=== PATIENT | female | born 1950 | race Caucasian/White ===

== ENCOUNTER 2019-02-11 00:55 | Outpatient (CLI) | payer MEDICARE, OTHER, SELFPAY ==
--- NOTE | 2019-02-11 07:37 | DI.MAMMO_ITS ---
SYMPTOM/DIAGNOSIS: SCREENING, Z12.31 MAMMOGRAMS: Mammograms were interpreted according to the usual protocol including computer analysis with CAD system, tomosynthesis and C view imaging. The breast tissue is of moderate radiodensity. There is no mass. There are no suspicious calcifications and there has been no significant interval change when compared with prior images. SUMMARY: No evidence of malignancy, category 1. Yearly screening mammography is recommended. Breast density, Category B. SA ASSESSMENT OF FINDINGS: Negative. Category 1. Patient will receive a letter notifying them of these results. BI-RADS category B. There are scattered areas of fibroglandular density.
[2019-02-11 08:56] LABS: Hemoglobin A1C 6.2 % (4.5-6.2)
[2019-02-11 09:03] LABS: Anion Gap 11.7 mmol/L (3-11); BUN 11 mg/dL (7-18); CO2 25.3 mmol/L (21.0-32.0); Calcium 9.3 mg/dL (8.5-10.1); Chloride 103 mmol/L (98-107); Glucose 178 mg/dL (70-100); Potassium 4.2 mmol/L (3.5-5.1); Sodium 140 mmol/L (136-145); TSH (W/Ref FT4) 3.65 uIU/mL (0.358-3.74)
== END 2019-02-11 01:15 ==
PROVIDERS: PCP Family Medicine; Visit Provider Family Medicine
DX: Z12.31 Encounter for screening mammogram for malignant neoplasm of breast (principal); E03.9 Hypothyroidism, unspecified; E78.5 Hyperlipidemia, unspecified; R73.01 Impaired fasting glucose
CPT/HCPCS: 36415; 77063; 77067; 80048; 83036; 84443

== ENCOUNTER 2019-03-30 12:26 | Outpatient (REF) | payer MEDICARE, OTHER, SELFPAY ==
--- NOTE | 2019-03-30 12:00 | SKI_PTH ---
PATIENT: Paula Sanz LOC: [facility] U#:[id number] AGE/SX: 68/F ROOM: RE03/30/[address]: Trae Evans DO : 1950 BED: DIS: 03/30/2019 SPEC #: [id number] RECD: 03/30/19 18:07 STATUS: SHARON REQ #: [id number] CRISTINO: 03/30/19 12:[address]: Trae Evans DEPT: Surgical Specimen RECD BY: Yudy Aranda ENTERED: 03/30/19 18:08 SP TYPE: MULUGETA SMITH DR: Linh Huber Tissues: 1 - SKIN BIOPSY(SHAVE/PUNCH) Procedures: SKIN LEVEL 4 Comments: [id number]
== END 2019-03-30 12:46 ==
LOC: LBN 12:26
PROVIDERS: PCP Family Medicine; Visit Provider Otolaryngology Otolaryngology/Facial Plastic Surgery
DX: L73.8 Other specified follicular disorders (principal); L98.8 Other specified disorders of the skin and subcutaneous tissue
CPT/HCPCS: 88305

== ENCOUNTER → 2019-07-23 08:51 | Outpatient (BNVA) | payer MEDICARE, OTHER, SELFPAY | PROVIDERS: PCP Family Medicine; Referring Provider Family Medicine; Visit Provider Physical Therapy Assistant | DX: Z12.11 Encounter for screening for malignant neoplasm of colon (principal); Z86.010 Personal history of colon polyps; Z80.0 Family history of malignant neoplasm of digestive organs; I10 Essential (primary) hypertension ==

== ENCOUNTER 2019-08-07 08:22 | Day surgery (SDC) | payer MEDICARE, OTHER, SELFPAY ==
[2019-08-07 08:41] VITALS: BP 163/94; PULSE 100; RESP 19; TEMP 36.3; O2SAT 95
--- NOTE | 2019-08-07 09:49 | W.PM.DSUDISC ---
Discharge Plan Disposition Patient Disposition: HOME Condition: Good Discharge Details Reason For Visit: Colonoscopy Attending Provider: Tiana Pond Primary Care Provider: Linh Huber Home Meds and New Rx's Prescriptions: Continued nabumetone 500 mg tablet 500 mg PO BID RF: 0 levothyroxine 50 MCG tablet 50 mcg PO DAILY RF: 0 rosuvastatin [Crestor] 10 MG tablet 10 mg PO DAILY RF: 0 ibuprofen [Advil Liqui-Gel] 200 MG capsule 400 mg PO PRN PRNRF: 0 naproxen sodium [Aleve] 220 MG capsule 220 mg PO PRN PRNRF: 0 Cardiamin 200 mcg-500 unit-200 mg Capsule 1 cap PO RF: 0 Discontinued polyethylene glycol 3350 17 gram/dose powder 238 g PO ONCE Qty: 238 RF: 0 bisacodyl [Dulcolax (bisacodyl)] 5 mg tablet,delayed release (DR/EC) 5 mg PO ONCE Qty: 4 RF: 0 Discharge Instructions Additional Instructions: Findings: Your colonoscopy showed diverticulosis. Follow up: Plan for follow up colonoscopy in 5 years due to family history and history of polyps. Please call if you develop: fevers >101.5 Nausea or Vomiting Abdominal pain that is not transient DAY SURGERY UNIT POST COLONOSCOPY INSTRUCTIONS 1. Because there will be medication in your system for the next 24 hours, you may feel a little sleepy. Your coordination will be affected. Therefore: a. Do not drive or operate dangerous equipment for 24 hours. b. Do not drink alcohol beverages for 24 hours (not even beer). c. Plan to go home and rest for the day. 2. Generally there are no restrictions on your activity after a day or so has gone by, but you may feel a bit fatigued for a few days. 3 After you arrive home you may have a light meal and return to a normal diet as you can tolerate it without feeling sick to your stomach. 4. After surgery, you may feel pain or discomfort. This should be only transient, but if it persists please contact your doctor. 5. If there are any questions regarding the findings of your procedure, please feel free to contact your doctor. 6. If you are unable to contact your doctor with a problem, contact the hospital at [phone]. 7. Continue all your regular medications unless directed otherwise. I understand the above instructions and have no questions. Signature of Patient or Responsible Adult Escort Date/Time Name of Responsible Adult Escort Signature of Nurse Date/Time Activity:: Activity as Tolerated Diet:: As Tolerated Discharge Orders Discharge Orders: Discharge Order (Routine); Ordered 08/07/19 Ordered By: Tiana Pond DS: Diagnosis Discharge Diagnosis (1) Diverticulosis: Status: Acute
[2019-08-07] MEDS: Lactated Ringers 1,000 ML 80 ML IV (10:19)
[2019-08-07 11:35] VITALS: BP 116/61; PULSE 80; RESP 16; TEMP 35.9; O2SAT 97
--- NOTE | 2019-08-07 11:59 | COLE_ITS ---
DATE OF PROCEDURE: August 07, 2019 PREOPERATIVE DIAGNOSIS: 1. History of colon polyps. 2. Family history of colon cancer. POSTOPERATIVE DIAGNOSIS: Diverticulosis. PROCEDURE: Colonoscopy. SURGEON: Tiana Pond M.D. ANESTHESIA: General. INDICATIONS: This is a 68-year-old woman whose colonoscopy in 2013 showed a tubular adenoma. She mckeon s a family history of colon cancer in her father, brother and sister. She does note that her stools are somewhat more narrow. PROCEDURE: She was placed in the left Vasquez position. Propofol was titrated to sedation. Digital re ctal examination revealed no abnormalities. The scope was advanced to the cecum with a small amount of abdominal pressure required. The ileocecal valve and appendiceal orifice were clearly identified. Her prep was excellent. The scope was slowly withdrawn with no abnormalities seen within the ascen ding, transverse or descending colon. The sigmoid region revealed moderate diverticular change. The rectum was normal, including on retroflex view. She tolerated the procedure well and was stable to recovery. Due to her personal history of polyps and family history of colon cancer, she will need a follow-up s creening again in five years. cc: Linh Huber M.D.
== END 2019-08-07 11:51 | disposition home or self-care (01) ==
PROVIDERS: PCP Family Medicine; Visit Provider Surgery
PROC: 0DJD8ZZ Inspection of Lower Intestinal Tract, Via Natural or Artificial Opening Endoscopic (ICD-10-PCS; CPT 45378; principal; 2019-08-07 09:45)
DX: Z12.11 Encounter for screening for malignant neoplasm of colon (principal); Z86.010 Personal history of colon polyps; Z80.0 Family history of malignant neoplasm of digestive organs; K57.30 Diverticulosis of large intestine without perforation or abscess without bleeding; I10 Essential (primary) hypertension
CPT/HCPCS: G0105; J2250; J3010

== ENCOUNTER 2020-06-17 11:19 | Outpatient (REF) | payer MEDICARE, OTHER, SELFPAY ==
[2020-06-17 19:31] LABS: HCT 48.1 % (36.0-46.0); HGB 15.5 g/dL (11.2-15.7); MCH 29.5 pg (27.0-33.0); MCHC 32.2 % (32.0-36.0); MCV 91.6 fL (80-95); MPV 10.9 fL (8.0-11.0); Platelet Count 231 10^3/uL (130-400); RBC 5.25 10^6/uL (3.93-5.22); RDW-SD 47.6 fL; WBC 7.91 10^3/uL (4.4-10.8)
[2020-06-17 20:18] LABS: ALT 29 U/L (14-59); AST 17 U/L (15-37); Albumin 4.2 g/dL (3.4-5.0); Alkaline Phosphatase 80 U/L (46-116); Anion Gap 10.5 mmol/L (3-11); BUN 14 mg/dL (7-18); Bilirubin, Total 0.4 mg/dL (0.2-1.0); CO2 25.5 mmol/L (21.0-32.0); CREATININE 0.74 mg/dL (0.55-1.02); Calcium 9.4 mg/dL (8.5-10.1); Chloride 104 mmol/L (98-107); Glucose 99 mg/dL (74-106); Magnesium 2.3 mg/dL (1.8-2.4); NT-proBNP 29 pg/mL (<300); Potassium 4.2 mmol/L (3.5-5.1); Sodium 140 mmol/L (136-145); TSH (W/Ref FT4) 2.43 uIU/mL (0.36-3.74); Total Protein 7.6 g/dL (6.4-8.2)
== END 2020-06-17 11:39 ==
LOC: NCHCN 11:19
PROVIDERS: PCP Family Medicine; Visit Provider Family Medicine
DX: E78.5 Hyperlipidemia, unspecified (principal); R73.03 Prediabetes; R60.0 Localized edema; E66.9 Obesity, unspecified
CPT/HCPCS: 80053; 85027; 83036; 83735; 83880; 84443

== ENCOUNTER 2021-07-06 13:02 | Outpatient (REF) | payer MEDICARE, OTHER, SELFPAY ==
[2021-07-06 09:45] LABS: Hemoglobin A1C 6.1 % (<5.7)
[2021-07-06 09:53] LABS: Anion Gap 11.1 mmol/L (3-11); BUN 12 mg/dL (7-18); CO2 26.9 mmol/L (21.0-32.0); CREATININE 0.8 mg/dL (0.55-1.02); Calcium 9.3 mg/dL (8.5-10.1); Calculated LDL 66 mg/dL (<100); Chloride 104 mmol/L (98-107); Cholesterol 175 mg/dL (<200); Glucose 110 mg/dL (74-106); HDL Cholesterol 57 mg/dL (40-60); Potassium 4.3 mmol/L (3.5-5.1); Sodium 142 mmol/L (136-145); TSH (W/Ref FT4) 2.61 uIU/mL (0.36-3.74); Triglyceride 260 mg/dL (<150)
== END 2021-07-06 13:03 | disposition home or self-care (01) ==
LOC: LBO 13:02
PROVIDERS: PCP Family Medicine; Visit Provider Family Medicine
DX: E78.5 Hyperlipidemia, unspecified (principal); R73.03 Prediabetes; E03.9 Hypothyroidism, unspecified
CPT/HCPCS: 36415; 80048; 80061; 83036; 84443

== ENCOUNTER 2021-07-06 15:08 | Outpatient (REF) | payer MEDICARE, OTHER, SELFPAY ==
[2021-07-06 14:05] LABS: Bilirubin Negative (Negative); Blood Negative (Negative); Clarity Clear (Clear); Glucose Negative (Negative); Ketones Negative (Negative); Leukocyte Esterase Negative (Negative); Nitrite Negative (Negative); Specific Gravity 1.015 (1.005-1.025); Urobilinogen 0.2 EU/dL (Up TO 0.2)
== END 2021-07-06 15:09 | disposition home or self-care (01) ==
LOC: NCHCN 15:08
PROVIDERS: PCP Family Medicine; Visit Provider Family Medicine
DX: R30.0 Dysuria (principal)
CPT/HCPCS: 81003

== ENCOUNTER 2021-07-14 00:47 | Outpatient (CLI) | payer MEDICARE, OTHER, SELFPAY ==
--- NOTE | 2021-07-14 | DI.DEXA_ITS ---
Exam(s) XR DEXA BONE DENSITY W/WO OSMIN EXAM: XR DEXA BONE DENSITY W/WO OSMIN CLINICAL HISTORY: SCREENING FOR OSTEOPOROSIS IN POSTMENOPAUSAL WOMAN,Z78.0 TECHNIQUE: COMPARISON: No exams were available for comparison FINDINGS: DEXA scan was performed according to the usual protocol. Findings for left hip scanning are T-score 0.2 with left femoral neck T-score -0.9. Prior study January 2015 showed left hip T-score 0.6. Lumbar spine scanning shows T-score -0.4, prior examination of 2014 showed lumbar T-score -0.7. Findings for right forearm scanning are T-score -1.4. Prior examination showed forearm T-score -0.4. IMPRESSION: Findings consistent with osteopenia according to the WHO criteria. The lateral vertebral scanogram shows no evidence of a vertebral compression fracture. RADIATION DOSE DELIVERED: Total DLP
== END 2021-07-14 01:07 ==
PROVIDERS: PCP Family Medicine; Visit Provider Family Medicine
DX: Z78.0 Asymptomatic menopausal state (principal); Z13.820 Encounter for screening for osteoporosis; M85.88 Other specified disorders of bone density and structure, other site
CPT/HCPCS: 77080

== ENCOUNTER 2021-08-04 02:11 | Outpatient (CLI) | payer MEDICARE, OTHER, SELFPAY ==
--- NOTE | 2021-08-04 08:45 | DI.MAMMO_ITS ---
Exam(s) MAMMO SCREENING EXAM: MAMMO SCREENING CLINICAL HISTORY: SCREENING MAMMO FOR BREAST CANCER Z12.31 TECHNIQUE: Mammograms were interpreted according to the usual protocol including computer analysis w [employer] CAD system, tomosynthesis and C-view imaging. COMPARISON: 2011 through 2018 FINDINGS: The breasts are composed of scattered fibroglandular densities, Breast Density category B. In the left breast, in the medial, central tissue, there is has been interval increase in prominence of an area of nodularity. It measures 9 millimeters in greatest dimension. Mild post biopsy scarrin g is noted in the upper inner quadrant. No suspicious masses or suspicious microcalcifications are seen in the right breast. No skin thickening or abnormal axillary lymph nodes are seen. IMPRESSION: BI-RADS Cat 0 - Assessment Incomplete: Need additional imaging evaluation spot compression views and ultrasound are recommended for further evaluation. Yearly screening mammography is recommended. Breast Density - Category B, scattered fibroglandular densities. A negative radiographic report should not delay biopsy if a dominant or clinically suspicious mass is present. Up to ten percent of cancers are not identified on mammography. A negative report may reinforce clinical impression. Adenosis and dense breasts may obscure an underlying neoplasm. False positive reports average 6 to 10%. Patient will receive a letter notifying them of these results.
== END 2021-08-04 02:31 ==
PROVIDERS: PCP Family Medicine; Visit Provider Family Medicine
DX: Z12.31 Encounter for screening mammogram for malignant neoplasm of breast (principal); R92.8 Other abnormal and inconclusive findings on diagnostic imaging of breast
CPT/HCPCS: 77063; 77067

== ENCOUNTER 2021-08-18 01:35 | Outpatient (CLI) | payer MEDICARE, OTHER, SELFPAY ==
--- NOTE | 2021-08-18 13:40 | DI.MAMMO_ITS ---
Exam(s) MG MAMMO SCREEN CALL BACK UNI US BREAST LT COMPLETE EXAM: MG MAMMO SCREEN CALL BACK UNI and U/S breast LT limited CLINICAL HISTORY: INCREASED PROMINENCE OF NODULARITY LEFT BREAST. TECHNIQUE: Craniocaudal and mediolateral oblique Full Field Digital Mammography views of the left br east with Computer Aided Diagnosis followed by Tomosynthesis and left breast ultrasound. COMPARISON: Priors available for comparison. FINDINGS: Mammography/Tomosynthesis: Masses/Architectural Distortion: The irregular 1 cm somewhat spiculated nodule in the upper inner jennifer drant of the left breast persists on the additional views. There is a single associated punctate dimitrios cification. Microcalcifictions: No suspicious pleomorphic-type are seen. Skin Thickening/Nipple Retraction: None. Left breast US: Echotexture: Normal appearance of the glandular tissue. Shadowing: No suspicious foci. Cyst: A 5 x 3 x 4 mm cyst is seen at the 12 o'clock position of the left breast 3 cm from the nipple. There is a 0.7 x 0.5 x 0.6 cm hypoechoic round avascular solid nodule at the 11 o'clock position of the left breast 4 cm from the nipple. This may represent the mammographic abnormality. Solid lesions: None seen. Ductal dilation: None. IMPRESSION: 1. Enlarging somewhat spiculated irregular nodule in the upper inner quadrant of the left breast. 2. Due to its size and appearance mammographically, biopsy is recommended. 3. The findings were discussed with the patient on the date of the examination. BI-RADS Category 4 - Suspicious Abnormality: Biopsy should be considered Breast Density - Category B - Scattered areas of fibroglandular density Breast density Category C or D implies that the patient has dense breast tissue. Dense breast tissue can make it harder to find cancer on a mammogram. Dense breast tissue is also associated with an incr eased risk of breast cancer. This information about the result of the mammogram report was provided to the patient to raise their awareness. Use this report when you speak with the patient about their risks for breast cancer, which includes their family history. At that time, you may recommend additional screening tests (Ultrasoun d or MRI) as these tests may add significant information. A negative radiographic report should not delay biopsy if a dominant or clinically suspicious mass is present. Up to ten percent of cancers are not identified on mammography. A negative report may reinforce clinical impression. Adenosis and dense breasts may obscure an underlying neoplasm. False positive reports average 6 to 10%. Patient will receive a letter notifying them of these results.
== END 2021-08-18 01:55 ==
PROVIDERS: PCP Family Medicine; Visit Provider Family Medicine
DX: R92.8 Other abnormal and inconclusive findings on diagnostic imaging of breast (principal); N63.22 Unspecified lump in the left breast, upper inner quadrant
CPT/HCPCS: 76642; 77063; 77067

== ENCOUNTER 2022-07-02 07:58 | Outpatient (REF) | payer MEDICARE, OTHER, SELFPAY ==
[2022-07-02 15:54] LABS: Hemoglobin A1C 6.3 % (<5.7)
[2022-07-02 16:40] LABS: ALT 38 U/L (14-59); AST 18 U/L (15-37); Albumin 4.4 g/dL (3.4-5.0); Alkaline Phosphatase 97 U/L (46-116); Anion Gap 13.3 mmol/L (3-11); BUN 14 mg/dL (7-18); Bilirubin, Total 0.4 mg/dL (0.2-1.0); CO2 25.7 mmol/L (21.0-32.0); CREATININE 0.6 mg/dL (0.55-1.02); Calcium 9.7 mg/dL (8.5-10.1); Calculated LDL 96 mg/dL (<100); Chloride 104 mmol/L (98-107); Cholesterol 192 mg/dL (<200); Estimated GFR 95.31 (mL/min/1.73m2); Glucose 109 mg/dL (74-106); HDL Cholesterol 50 mg/dL (40-60); Sodium 143 mmol/L (136-145); TSH (W/Ref FT4) 3.19 uIU/mL (0.36-3.74); Total Protein 8.2 g/dL (6.4-8.2); Triglyceride 234 mg/dL (<150)
== END 2022-07-02 07:59 | disposition home or self-care (01) ==
LOC: NCHCN 07:58
PROVIDERS: PCP Family Medicine; Visit Provider Family Medicine
DX: E78.5 Hyperlipidemia, unspecified (principal); R73.03 Prediabetes; R03.0 Elevated blood-pressure reading, without diagnosis of hypertension; E03.9 Hypothyroidism, unspecified
CPT/HCPCS: 80053; 80061; 83036; 84443

== ENCOUNTER 2022-10-15 14:55 | Outpatient (REF) | payer MEDICARE, SELFPAY ==
[2022-10-15 16:03] LABS: TSH (W/Ref FT4) 1.17 uIU/mL (0.36-3.74)
== END 2022-10-15 14:56 | disposition home or self-care (01) ==
LOC: NCHCN 14:55
PROVIDERS: PCP Family Medicine; Visit Provider Family Medicine
DX: E03.9 Hypothyroidism, unspecified (principal)
CPT/HCPCS: 84443

== ENCOUNTER → 2023-06-19 03:01 | Outpatient (CLI) | payer MEDICARE, SELFPAY ==
--- NOTE | 2023-06-19 | DI.CT_ITS ---
Exam(s) CT ABDOMEN PELVIS W EXAM: CT ABDOMEN PELVIS W CLINICAL HISTORY: PERIUMBILICAL ABD PAIN R10.33. TECHNIQUE: Imaging Protocol: Axial computed tomography images with coronal and sagittal reformatted images were created and reviewed CONTRAST MATERIAL: Intravenous: Omnipaque-350 100cc Oral: None COMPARISON: No exams were available for comparison FINDINGS: VISUALIZED LUNG BASES: No nodules nor pleural effusions evident. ABDOMEN: There is no ascites. LIVER: Liver is slightly prominent and hypodense implying steatosis. There are no discrete focal hep atic lesions identified. No dilated intrahepatic ducts. GALLBLADDER/BILIARY: Does not appear edematous nor distended. CBD not dilated. CBD is not dilated. PANCREAS: There is a cyst in the anterior aspect of the uncinate process of the pancreas which measur es 8 x 7 mm. No associated calcification. Duct not dilated. There is another slightly smaller cyst in the pancreatic tail which measures 4 mm x 4 mm. The pancreatic duct diameter is slightly promine nt, measuring 3-4 mm. There is no hypodense mass in the pancreas. The CBD diameter as it passes thr ough the pancreas is 4-5 mm, within normal limits and there is no mass at this level nor intraluminal calculus. SPLEEN: Spleen is not enlarged. No obvious intrasplenic lesions. Splenic and portal veins are paten t. ADRENALS: There is slight fusiform thickening of the medial limb of the left adrenal gland. Right ad renal gland unremarkable. KIDNEYS:Small benign cysts in the left kidney measuring 0 point 7 cm and 1.5 cm, not requiring furthe r workup. No solid lesions nor calculi in the left kidney. There are no significant focal findings in the opposite-right kidney. No hydronephrosis on either side. Ureters not dilated. No obvious ab normality in the lumen of the urinary bladder.. ABDOMINAL AORTA: Abdominal aorta is not enlarged. LYMPH NODES:There is no retroperitoneal nor paraaortic adenopathy. ABDOMINAL WALL: There is a midline anterior abdominal wall supraumbilical fat containing hernia sac. This hernia sac measures 4.5 cm wide by 6 cm cephalocaudal. Neck size is 1.8 cm. Contains fat but no fluid nor bowel loops therein. GI: There is a prominent hiatal hernia which measures 7 cm wide by 5 cm AP by 6 cm craniocaudal. Ora l contrast has reached the colon. No evidence of bowel obstruction. There is extensive sigmoid dive rticulosis.. Also multiple diverticuli in the left side of the colon. There is some streaking aroun d 1 of these diverticuli at the left iliac crest level consistent with acute diverticulitis. There a re few uncomplicated diverticuli in the transverse colon and right side of the colon. PELVIS: GI: No evidence of appendicitis. LYMPH NODES: There is no intrapelvic nor inguinal adenopathy. REPRODUCTIVE: The uterus is grossly abnormal being enlarged and lobulated with multiple fibroids. In addition, there is a 4 x 3.5 cm mass projected in the endometrium which is either an endometrial mas s or additional submucosal fibroid. Requires ultrasound. Small cyst in the left ovary measuring 2.3 by 1.1 cm is noted. URINARY BLADDER: No calculi nor obvious masses evident OSSEOUS: No fractures and no significant osseous lesions. IMPRESSION: 1. There is extensive diverticulosis of the left side of the colon and sigmoid. There is also eviden ce of acute diverticulitis at the level of lower left colon just above the iliac crest level. No tosin e air nor abscess at this time. 2. Cholelithiasis. There are calculi ranging up to 2.5 cm size. No obvious gallbladder wall edema n or gallbladder distension and the CBD is not dilated. 3. There are 2 cystic structures in the pancreas. One is in the uncinate process and measures 0.8 cm size. The other is in the pancreatic tail and measures 0.4 cm size. Recommend follow-up pancreatic protocol MRI. 4. The uterus is abnormally enlarged and lobulated with multiple uterine fibroids. There is also a 4 x 3.5 cm mass projected over the endometrium which may be intrinsic endometrial pathology or submuco eliceo fibroid. Follow-up ultrasound is recommended. 5. There is a midline umbilical region hernia sac measuring 6 x 4.5 cm which contains fat but no flu id nor bowel loops. 6. Hepatic steatosis evident. Wet read RADIATION DOSE DELIVERED: 1,409.41mGy.cm Total DLP DATA REPOSITORY: All CT scans at this facility are submitted to the National Radiology Data Registry (NRDR) Dose Index Registry (DIR) with the [employer] (ACR). RADIATION OPTIMIZATION: All CT scans at this facility use at least one of these dose optimization te chniques: automated exposure control; mA and/or kV adjustment per patient size (includes targeted exa ms where dose is matched to clinical indication); or iterative reconstruction.
[2023-06-19 08:41] LABS: CREATININE 0.8 mg/dL (0.55-1.02); Estimated GFR 77.75 (mL/min/1.73m2)
[2023-06-19] MEDS: Normal Saline - Diluent 50 ML VIAL IJ (09:26)
[2023-06-19] MEDS: Omnipaque 350 MG/ML 500 ML BTL-Imaging package IJ (09:27)
[2023-06-19] MEDS: Normal Saline Flush 10 ML SYR IVP (09:28)
[2023-06-19] MEDS: Barium Sulfate 2% W/V-Berry Smoothie 450 ML BTL PO (09:29)
== END ==
PROVIDERS: PCP Family Medicine; Visit Provider Family Medicine
DX: K57.30 Diverticulosis of large intestine without perforation or abscess without bleeding (principal); K80.80 Other cholelithiasis without obstruction; D25.9 Leiomyoma of uterus, unspecified
CPT/HCPCS: 36415; 74177; 82565

== ENCOUNTER → 2023-06-26 01:05 | Outpatient (CLI) | payer MEDICARE, SELFPAY ==
--- NOTE | 2023-06-26 | DI.US_ITS ---
Exam(s) US PELVIS TRANSVAGINAL EXAM: US PELVIS TRANSVAGINAL CLINICAL HISTORY: UTERUS FIBROIDS, D25.9, F/U ABNL FINDINGS ON CT SCAN TECHNIQUE: Transabdominal and transvaginal imaging was performed using standard protocol. COMPARISON: CT CT ABDOMEN PELVIS W from 06/19/2023 FINDINGS: UTERUS: Anteverted. 7.3 x 6.9 x 6.3 cm Endometrium: Obscured by fibroids Myometrium: Multiple fibroids. Fundal fibroid measuring 3.5 cm. Central fibroid measuring 4.2 cm. This could be a submucosal fibroid. Posterior fibroid measuring 3.5 x 4 cm. Anterior lower uterine segment fibroid measuring 3.8 cm Cervix: Unremarkable. OVARIES: Not visualized. CUL-DE-SAC: Free fluid: None. IMPRESSION: 1. Multiple uterine fibroids. There is a central fibroid which may be submucosal. Endometrial strip e obscured by fibroids. 2. Ovaries not visualized. DATA REPOSITORY:
== END ==
PROVIDERS: PCP Family Medicine; Visit Provider Family Medicine
DX: D25.9 Leiomyoma of uterus, unspecified (principal)
CPT/HCPCS: 76830; 76856

== ENCOUNTER 2023-07-15 17:54 | Outpatient (REF) | payer MEDICARE, SELFPAY ==
[2023-07-15 15:45] LABS: Anion Gap 12.8 mmol/L (3-11); BUN 11 mg/dL (7-18); CO2 24.2 mmol/L (21.0-32.0); CREATININE 0.7 mg/dL (0.55-1.02); Calcium 9.4 mg/dL (8.5-10.1); Chloride 105 mmol/L (98-107); Estimated GFR 91.26 (mL/min/1.73m2); Glucose 115 mg/dL (74-106); Potassium 4.2 mmol/L (3.5-5.1); Sodium 142 mmol/L (136-145); TSH (W/Ref FT4) 2.21 uIU/mL (0.36-3.74)
[2023-07-15 15:59] LABS: Vitamin D 25 Total 26.4 ng/mL (30-100)
== END 2023-07-15 17:55 | disposition home or self-care (01) ==
LOC: NCHCN 17:54
PROVIDERS: PCP Family Medicine; Visit Provider Family Medicine
DX: E03.9 Hypothyroidism, unspecified (principal); R03.0 Elevated blood-pressure reading, without diagnosis of hypertension; E66.9 Obesity, unspecified
CPT/HCPCS: 80048; 82306; 84443

== ENCOUNTER → 2023-07-18 01:37 | Outpatient (CLI) | payer MEDICARE, SELFPAY ==
--- NOTE | 2023-07-18 | DI.MRI_ITS ---
Exam(s) MR ABDOMEN WO/W EXAM: MR ABDOMEN WO/W CLINICAL HISTORY: PANCREATIC CYST, K86.2 TECHNIQUE: Multiplanar multisequence MRI of the Abdomen was performed. CONTRAST MATERIAL: IV Contrast: 20 mL of Dotarem contrast administered. COMPARISON: CT CT ABDOMEN PELVIS W from 06/19/2023 FINDINGS: The examination is limited due to patient motion artifact. Lung bases: There is a large hiatal hernia. Liver: Unremarkable. Pancreas: There is a 4 mm cyst in the tail of the pancreas. There is a 7 mm simple cyst in the anter ior aspect of the uncinate process of the pancreas. There is a 2 mm cysts seen in the posterior aspe ct of the uncinate process. No solid masses seen in the pancreas. Pancreatic duct is within normal limits. Gallbladder and Bile Ducts: There is a gallstone present. There is no biliary ductal dilatation. Adrenals: Unremarkable. Kidneys: There are 2 simple left renal cysts. The largest measures 1.7 cm. No follow-up is recommen ded. There is no evidence of obstructive uropathy. Spleen: Unremarkable. Bowel: There is diverticulosis of the colon but no evidence of acute diverticulitis. Aorta: Unremarkable. Soft Tissues: Unremarkable. Bone: Unremarkable. Lymph Nodes: Unremarkable. IMPRESSION: 1. Simple cysts seen in the pancreas. The largest measures 7 mm. Recommended follow-up is every 2 y ears x5. (Abiola et al, 2017). 2. Simple left renal cysts. No follow-up is recommended. 3. Cholelithiasis. No biliary ductal dilatation. DATA REPOSITORY:
[2023-07-18] MEDS: Normal Saline - Diluent 50 ML VIAL 25 ML IJ (12:37)
[2023-07-18] MEDS: Gadoterate meglumine 20 ML VIAL IVP (12:37)
== END ==
PROVIDERS: PCP Family Medicine; Visit Provider Family Medicine
DX: K86.2 Cyst of pancreas (principal); N20.0 Calculus of kidney
CPT/HCPCS: 74183

== ENCOUNTER 2024-02-11 10:55 | Outpatient (REF) | payer MEDICARE, SELFPAY ==
[2024-02-11 16:29] LABS: Anion Gap 13.3 mmol/L (3-11); BUN 11 mg/dL (7-18); CO2 24.7 mmol/L (21.0-32.0); CREATININE 0.7 mg/dL (0.55-1.02); Calcium 8.9 mg/dL (8.5-10.1); Chloride 105 mmol/L (98-107); Glucose 106 mg/dL (74-106); Potassium 3.9 mmol/L (3.5-5.1); Sodium 143 mmol/L (136-145)
== END 2024-02-11 10:56 | disposition home or self-care (01) ==
LOC: NCHCN 10:55
PROVIDERS: PCP Family Medicine; Visit Provider Family Medicine
DX: I10 Essential (primary) hypertension (principal)
CPT/HCPCS: 80048

== ENCOUNTER 2024-04-29 01:51 | Outpatient (CLI) | payer MEDICARE, SELFPAY ==
--- NOTE | 2024-04-29 | DI.MRI_ITS ---
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 CONTRAST MATERIAL: IV Contrast: 20 ML of Dotarem contrast administered. COMPARISON: No exams were available for comparison FINDINGS: BONES: Vertebral body heights are maintained. Intervertebral disc spaces are normal. There is a mild right convex curvature in the cervical spine. Bone marrow signal intensity is within normal limits. CERVICAL CORD: Craniovertebral junction is unremarkable. The cervical cord is normal size and signal intensity. No lesion is present. SOFT TISSUES: Unremarkable. ENHANCEMENT: No suspicious enhancement identified. C2-3: No disc herniation or bulge is identified. No significant central spinal canal or neural forami nal stenosis. C3-4: No disc herniation or bulge is identified. No significant central spinal canal or neural forami nal stenosis C4-5: No disc herniation or bulge is identified. There are mild degenerative changes seen of the face ts on the left causing mild narrowing of the left neural foramen. No significant central spinal cely l or right neural foraminal stenosis. C5-6: No disc herniation or bulge is identified. There are degenerative changes seen at the left unco vertebral joint causing [id number] left neural foraminal stenosis. No significant central spin al canal or right neural foraminal stenosis. C6-7: No disc herniation or bulge is identified. No significant central spinal canal or neural forami nal stenosis C7-T1: No disc herniation or bulge is identified. No significant central spinal canal or neural jessy inal stenosis IMPRESSION: 1. There are degenerative changes seen in the cervical spine resulting in left neural foraminal steno sis at C4-5 and C5-C6. 2. No focal disc herniation or central spinal canal stenosis. DATA REPOSITORY:
--- NOTE | 2024-04-29 | DI.MRI_ITS ---
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 IV contrast injected was 20 mL Dotarem COMPARISON: CT CT ABDOMEN PELVIS W from 06/19/2023 FINDINGS: OSSEOUS: There are no acute appearing thoracic vertebral fractures. There are no ominous osseous les ions in the thoracic vertebrae. However, there is Modic type 1 sub endplate edema in the T7 and T8 v ertebral bodies. There is some disc space narrowing at this level and the disc protrusion (see below ). THORACIC SPINAL CORD: There is no abnormal signal in the cervical spinal cord and no evidence of foca l cord atrophy nor focal cord swelling. There is no evidence of syringomyelia nor significant spinal cord dysraphism. There is no evidence of mass at the conus medullaris. The position of the conus me dullaris is at T12-L1 level. SIGNIFICANT INDIVIDUAL LEVEL FINDINGS: T2-3: This level exhibits a small central subligamentous disc protrusion. Indents the thecal sac but not the spinal cord. Central canal dimensions normal. No foraminal stenosis. No abnormal signal i n the cord at this level. No abnormal enhancement at this level. T5-6: There is a central-left paracentral disc protrusion at this level which extends posteriorly 3.5 mm significantly indenting the thecal sac at this level. This disc protrusion is 9 mm wide and exte nds slightly above and slightly below the disc space behind the T5 and T6 vertebral bodies. No jessy inal stenosis at this level. There is no abnormal signal in the cord at this level. No abnormal enh ancement at this level. T7-8: There are prominent Modic type 1 sub endplate marrow edema changes at this level. Posteriorly there is a disc protrusion with effacement of the anterior aspect of the thecal sac. No prominent ce ntral canal stenosis. Also no foraminal stenosis. PARASPINAL TISSUES: No significant masses nor fluid collections evident. IMPRESSION: 1. At T7-T8 level there are Modic type 1 sub endplate marrow edema changes and there is a posterior d isc protrusion at this level which effaces the anterior thecal sac but not the spinal cord. Disc pro trusion does not extend into the exiting neural foramina. There is no significant foraminal stenosis at this level nor at other levels in the thoracic spinal column. 2. Other less prominent findings as above at T2-T3 and T7-T8 level 3. There is no abnormal enhancement in the spinal canal and epidural space DATA REPOSITORY:
--- NOTE | 2024-04-29 | DI.MRI_ITS ---
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 TECHNIQUE: Multiplanar multisequence MRI of the Lumbar Spine was performed. CONTRAST MATERIAL: IV Contrast: 20 mL of Dotarem contrast administered. COMPARISON: No exams were available for comparison FINDINGS: Bones: The last intervertebral disc space is designated the L5/S1 level for the numbering purpose of this examination. The vertebral body heights are well maintained. Alignment is satisfactory. Mild de generative endplate signal changes are present. Cord: The conus tip ends at the T12 level. It is of normal size and signal intensity. T12-L1: No disc herniations or bulges are present. No central spinal canal or neural foraminal stenos is. L1-2: No disc herniations or bulges are present. No central spinal canal or neural foraminal stenosis . L2-3: No disc herniations or bulges are present. No central spinal canal or neural foraminal stenosis . L3-4: There is a mild diffuse disc bulge. There are degenerative changes of the facets. Very mild n arrowing of the central spinal canal and left neural foramen is seen. No right neural foraminal sten osis is seen. No central spinal canal or neural foraminal stenosis. L4-5: There is a diffuse disc bulge. The findings result in mild narrowing of the central spinal can al. There is also mild narrowing of the neural foramen bilaterally.Degenerative changes of the facet s are seen at L4-L5. L5-S1: No disc herniations or bulges are present. There are degenerative changes seen of the facets at L5-S1. No central spinal canal or neural foraminal stenosis. Soft tissues: The visualized SI joints and sacrum are well maintained. The paraspinal soft tissues ar e unremarkable. There is no evidence of suspicious enhancement. IMPRESSION: 1. No abnormal enhancement is identified. 2. Degenerative changes in the lumbar spine resulting in central spinal canal or neural foraminal latricia rowing as described above. The findings are most marked at L4-L5. DATA REPOSITORY:
[2024-04-30] MEDS: Normal Saline Flush 10 ML SYR IVP (14:04)
[2024-04-30] MEDS: Gadoterate meglumine 20 ML SYRINGE IVP (14:04)
--- NOTE | 2024-04-30 16:08 | DI.VRAD_ITS ---
PROCEDURE INFORMATION: Exam: MR Thoracic Spine Without and With Contrast Exam date and time: 04/29/2024 8:06 AM Age: 73 years old Clinical indication: Patient HX: Stage 1 brest CA fe, lbp, chronic midline t backs TECHNIQUE: Imaging protocol: Magnetic resonance imaging of the thoracic spine without and with contrast. Contrast material: DOTERUM; Contrast volume: 20 ml; Contrast route: INTRAVENOUS (IV); COMPARISON: CT ABDOMEN PELVIS W 06/19/2023 9:30 AM FINDINGS: Bones/joints: Mild exaggeration of the normal thoracic kyphosis. Otherwise anatomic alignment of the thoracic spine. No marrow infiltrative changes are appreciated. Spinal cord: The thoracic cord is normal in morphology and signal intensity. No evidence of acute cord compression. The conus medullaris terminates at L1. No abnormal intrathecal enhancement. T1-T2: No significant disc bulge or herniation. No severe spinal canal stenosis. No significant neural foraminal narrowing. T2-T3: Posterior disc protrusion with mild indentation of the ventral thecal sac. No significant neural foraminal narrowing. T3-T4: Posterior central disc protrusion with mild indentation of the ventral thecal sac. No significant neural foraminal narrowing. T4-T5: No significant disc bulge or herniation. No severe spinal canal stenosis. No significant neural foraminal narrowing. T5-T6: Posterior central disc extrusion with cranial and caudal subligamentous extension along the posterior T5 and T6 vertebral bodies. Indentation of the ventral thecal sac with partial effacement of the ventral CSF column. No significant neural foraminal narrowing. T6-T7: No significant disc bulge or herniation. No severe spinal canal stenosis. No significant neural foraminal narrowing. T7-T8: Modic type 1 endplate degenerative signal change. Irregular posterior disc protrusion with effacement of the ventral CSF column. No significant neural foraminal narrowing. T8-T9: Disc bulge with mild indentation of the ventral thecal sac. No significant neural foraminal narrowing. T9-T10: No significant disc bulge or herniation. No severe spinal canal stenosis. No significant neural foraminal narrowing. T10-T11: No significant disc bulge or herniation. No severe spinal canal stenosis. No significant neural foraminal narrowing. T11-T12: No significant disc bulge or herniation. No severe spinal canal stenosis. No significant neural foraminal narrowing. T12-L1: No significant disc bulge or herniation. No severe spinal canal stenosis. No significant neural foraminal narrowing. Soft tissues: Unremarkable. Other findings: Prominent hiatal hernia is incompletely evaluated. IMPRESSION: 1. Degenerative changes of the thoracic spine as described above, with Modic type 1 degenerative signal change at T7-T8. 2. Afsw-qu-iabgfvsq spinal canal stenosis at T5-T6 and T7-T8. No evidence of acute cord compression. 3. Incompletely evaluated prominent hiatal hernia, probably not significantly changed from 06/19/2023 Dictated and Authenticated by: Jose Luis Jane MD. Ordering:STACIE Dinero MD
== END 2024-04-29 02:11 ==
PROVIDERS: PCP Family Medicine; Visit Provider Internal Medicine Hematology & Oncology
DX: M48.062 Spinal stenosis, lumbar region with neurogenic claudication (principal); M48.02 Spinal stenosis, cervical region
CPT/HCPCS: 72158; 72156; 72157

== ENCOUNTER 2024-06-01 12:37 | Outpatient (CLI) | payer MEDICARE, SELFPAY ==
--- NOTE | 2024-06-01 09:45 | DI.RAD_ITS ---
Exam(s) XR KNEE LT 4V+ EXAM: XR KNEE LT 4V+ CLINICAL HISTORY: OA L KNEE. TECHNIQUE: 2D digital imaging was performed. COMPARISON: CR KNEES BILAT AP PA UP LATS from 03/01/2017 FINDINGS: Four views No evidence fracture. Moderate size joint effusion noted. There are osteoarthritic degenerative effie nges which are most prominent in the medial compartment but appearing similar to 2017 moderate joint space narrowing and marginal osteophytes. No significant narrowing of the lateral compartment on the standing view. Mild-moderate degenerative changes noted in the medial aspect the patellofemoral com partment Bone density normal. No osseous lesions. IMPRESSION: Degenerative changes. Joint effusion. DATA REPOSITORY: RADIATION DOSE DELIVERED:
--- NOTE | 2024-06-01 09:45 | DI.RAD_ITS ---
Exam(s) XR KNEE RT 4V AP,LAT,FLOYD,PAT EXAM: XR KNEE RT 4V AP,LAT,FLOYD,PAT CLINICAL HISTORY: RIGHT KNEE PAIN. TECHNIQUE: 2D digital imaging was performed. COMPARISON: CR XR KNEE LT 4V+ from 06/01/2024 FINDINGS: Four views No evidence of acute fracture. Small knee joint effusion is noted. There are degenerative changes i n the medial compartment with significant joint space narrowing and marginal osteophytes. Lateral co mpartment exhibits normal height as does the patellofemoral compartment. There are 4 adjacent calcific densities in the anterior extra-articular soft tissues anterior to the inferior aspect of the patellar ligament-anterior tibial tubercle. These each measure approximately 5 x 5 mm. No radiopaque foreign body evident IMPRESSION: There are significant degenerative changes in the medial compartment. Joint effusion noted. Extra-articular anterior calcifications as described above DATA REPOSITORY: RADIATION DOSE DELIVERED:
--- NOTE | 2024-06-01 10:15 | DI.RAD_ITS ---
Exam(s) XR HIP LT COMPLETE AP PELVIS EXAM: XR HIP LT COMPLETE AP PELVIS CLINICAL HISTORY: left hip pain. TECHNIQUE: 2D digital imaging was performed. COMPARISON: No exams were available for comparison FINDINGS: Two views No evidence of pelvic nor hip fracture. No hip joint space narrowing on either side. Additional lat eral view of the left hip does not reveal osteophytes nor significant joint space narrowing. Bone de nsity is age-appropriate. Osteitis symphysis pubis incidentally noted. Degenerative changes in the lumbar spine noted. IMPRESSION: No acute osseous findings in the pelvis and hips. DATA REPOSITORY: RADIATION DOSE DELIVERED:
== END 2024-06-01 12:38 | disposition home or self-care (01) ==
LOC: DIORS 15:39
PROVIDERS: PCP Family Medicine; Referring Provider Family Medicine; Visit Provider Student in an Organized Health Care Education/Training Program
DX: M17.0 Bilateral primary osteoarthritis of knee (principal); M25.552 Pain in left hip
CPT/HCPCS: 20610; 99203; J1010; 73502; 73564

== ENCOUNTER 2024-07-13 09:16 | Outpatient (REF) | payer MEDICARE, SELFPAY ==
[2024-07-13 17:12] LABS: Hemoglobin A1C 6.1 % (<5.7)
[2024-07-13 17:24] LABS: TSH (W/Ref FT4) 2.23 uIU/mL (0.36-3.74); Vitamin D 25 Total 27.1 ng/mL (30-100)
== END 2024-07-13 09:17 | disposition home or self-care (01) ==
LOC: NCHCN 09:16
PROVIDERS: PCP Family Medicine; Visit Provider Family Medicine
DX: R73.03 Prediabetes (principal); E03.9 Hypothyroidism, unspecified; E55.9 Vitamin D deficiency, unspecified
CPT/HCPCS: 82306; 83036; 84443

== ENCOUNTER 2024-10-05 13:52 | Outpatient (CLI) | payer MEDICARE, SELFPAY ==
--- NOTE | 2024-10-05 09:00 | DI.RAD_ITS ---
Exam(s) XR STANDING ALIGNMENT EXAM: XR STANDING ALIGNMENT CLINICAL HISTORY: pain, pre op. TECHNIQUE: 2D digital imaging was performed. Standing AP views were performed from the pelvis throu gh the ankles. COMPARISON: CR XR KNEE RT 4V AP,LAT,FLOYD,PAT from 06/01/2024 CR XR KNEE LT 4V+ from 06/01/2024 CR XR HIP LT COMPLETE AP PELVIS from 06/01/2024 FINDINGS: BONES: No acute fracture is present. No bony destructive lesion is seen. Leg length discrepancy: No significant overall leg length discrepancy. JOINTS: Knees: Moderate to severe narrowing of both medial femoral tibial joint spaces with prominent periarticular spurring. Mild bilateral varus angulation. The ankle joints are unremarkable. The hip joints are unremarkable. SOFT TISSUE: Normal. IMPRESSION: Advanced degenerative changes of both medial femoral tibial compartment. . No significant leg length discrepancy. DATA REPOSITORY: RADIATION DOSE DELIVERED:
== END 2024-10-05 13:53 | disposition home or self-care (01) ==
LOC: DIORS 13:52
PROVIDERS: PCP Family Medicine; Referring Provider Family Medicine; Visit Provider Student in an Organized Health Care Education/Training Program
DX: M17.11 Unilateral primary osteoarthritis, right knee; M17.12 Unilateral primary osteoarthritis, left knee
CPT/HCPCS: 99213; 77073

== ENCOUNTER 2024-11-30 01:53 | Outpatient (CLI) | payer MEDICARE, SELFPAY ==
[2024-11-30 13:48] LABS: HCT 47.5 % (36.0-46.0); HGB 15.5 g/dL (11.2-15.7); MCH 29.7 pg (27.0-33.0); MCHC 32.6 % (32.0-36.0); MCV 91 fL (80-95); MPV 9.7 fL (8.0-11.0); Platelet Count 249 10^3/uL (130-400); RBC 5.22 10^6/uL (3.93-5.22); RDW-SD 47.5 fL; WBC 8.51 10^3/uL (4.4-10.8)
[2024-11-30 14:01] LABS: Anion Gap 8.1 mmol/L (3-11); BUN 11 mg/dL (7-18); CO2 28.9 mmol/L (21.0-32.0); CREATININE 0.9 mg/dL (0.55-1.02); Calcium 9.5 mg/dL (8.5-10.1); Chloride 104 mmol/L (98-107); Estimated GFR 66.67 (mL/min/1.73m2); Glucose 143 mg/dL (74-106); Potassium 3.9 mmol/L (3.5-5.1); Sodium 141 mmol/L (136-145)
== END 2024-11-30 01:54 | disposition home or self-care (01) ==
LOC: LBO 01:54
PROVIDERS: PCP Family Medicine; Visit Provider Student in an Organized Health Care Education/Training Program
DX: M17.12 Unilateral primary osteoarthritis, left knee (principal); Z01.818 Encounter for other preprocedural examination
CPT/HCPCS: 36415; 80048; 85027

== ENCOUNTER 2024-12-11 10:02 | Outpatient (CLI) | payer MEDICARE, SELFPAY ==
[2024-12-11 10:05] LABS: Hemoglobin A1C 6.1 % (<5.7)
[2024-12-15 15:08] LABS: Fructosamine 258 mcmol/L (200 - 285)
== END 2024-12-11 10:03 | disposition home or self-care (01) ==
LOC: LBO 10:02
PROVIDERS: PCP Family Medicine; Visit Provider Student in an Organized Health Care Education/Training Program
DX: R73.03 Prediabetes (principal); Z01.818 Encounter for other preprocedural examination
CPT/HCPCS: 36415; 82985; 83036

== ENCOUNTER 2024-12-23 08:48 | Day surgery (SDC) | payer MEDICARE, SELFPAY ==
[2024-12-23] VITALS (26 sets, daily range): BP systolic 129–176; BP diastolic 75–93; PULSE 75–96; RESP 11–23; TEMP 36.2–36.9; O2SAT 91–97; BMI 41.0
--- NOTE | 2024-12-23 07:29 | W.PM.DSUDISC ---
Date of service: 12/23/24 Discharge Plan Disposition Patient Disposition: Home Condition: Good Discharge Details Reason For Visit: L TKR Attending Provider: Dennis Burton Primary Care Provider: Linh Huber Home Meds and New Rx's Prescriptions: New acetaminophen 500 mg tablet 1,000 mg PO TID Qty: 90 3RF aspirin 81 mg tablet,delayed release (DR/EC) 81 mg PO BID Qty: 60 0RF celecoxib 200 mg capsule 200 mg PO BID Qty: 60 0RF pantoprazole 40 mg tablet,delayed release (DR/EC) 40 mg PO DAILY Qty: 14 0RF dexamethasone 4 mg tablet 4 mg PO DAILY Qty: 2 0RF gabapentin 300 mg capsule 300 mg PO QHS Qty: 14 0RF oxycodone 5 mg tablet 5 mg PO Q4H PRNQty: 18 0RF Continued cardamon PO iuvehqmv-qbil-hghsw-oreg-capry 100 mg-150 mg- 50 mg-150 mg capsule 1 cap PO DAILY levothyroxine 75 mcg capsule 75 mcg PO DAILY valsartan 80 mg tablet 160 mg PO DAILY Discontinued ibuprofen [Advil Liqui-Gel] 200 MG capsule 400 mg PO PRN PRN Discharge Instructions Additional Instructions: Total Knee Discharge Instructions Activity: The most important activity is to walk and to work on gentle motion (both flexion and extension). You should try to take short walks a few times a day. It is important that when resting you work on keeping the knee straight. Avoid putting a pillow behind the knee as this will encourage flexion. Work on range of motion exercises as provided by Physical Therapy. - Start outpatient physical therapy within 2 weeks. - You should wear the FELICIA hose on both legs for 2 weeks. You may remove these at night. You may also use any compression sock in place of the FELICIA hose. - Utilize [employer] to review exercises, see videos on exercises and obtain basic information pertaining to your surgery and your recovery. Dressing: Remove the Abhishek wrap by 2 days after your surgery and put on the FELICIA stocking given to you from the hospital. Keep the surgical dressing (underneath the ABHISHEK wrap) in place for at least one week. After the first week it may be removed and replaced with light gauze and tape or nothing. The wound and dressing may get wet after 3 days but avoid soaking the dressing or otherwise it will need to be changed. Many people prefer covering the dressing with cling wrap (saran wrap) to minimize it from getting soaked. If it gets wet, just pat dry. If it starts to peel off then it will need to be changed. Medications: - You should take Tylenol and anti-inflammatory Celebrex as your primary pain control medications. If the Celebrex is too expensive or not covered, please call the office for another alternative (Advil/Ibuprofen or Naproxen/Aleve) - You have been prescribed a stronger pain medication Oxycodone for breakthrough pain, take as needed as prescribed. - You have also been prescribed a stomach acid reduction agent Pantoprozole to help reduce stomach acid and reflux. - You have been prescribed Gabapentin to take at night for restlessness and nerve pain. - You will be taking Aspirin 81mg twice a day for DVT prevention unless instructed otherwise. - You have also been prescribed Decadron to take to control post-operative nausea and pain. You will start this tomorrow. - If you have constipation you should take Colace or Miralax (both lsol-rmz-[id number]). It takes most people 3-4 days to have a bowel movement. Follow-up: 2 weeks If you have any acute concerns or questions, please do not hesitate to contact the office at [phone]. You may contact Dr. Burton with any questions after hours through the hospital at [phone] or on his cell phone at [phone]. Referrals: Dennis Burton MD [ [facility] STAFF PHYSICIAN] - Equipment/Supplies: Walker Activity:: Activity as Tolerated Shower/Bathe:: 72 hours Diet:: As Tolerated Discharge Orders Discharge Orders: Discharge Order (Routine); Ordered 12/23/24 Ordered By: Johnnie Lott DS: Diagnosis Discharge Diagnosis (1) Left knee DJD: Status: Resolved
[2024-12-23] MEDS: Acetaminophen 500 MG TAB 1000 MG PO (09:51)
[2024-12-23] MEDS: Gabapentin 300 MG CAP PO (09:51)
[2024-12-23] MEDS: Celecoxib 200 MG CAP 400 MG PO (09:51)
[2024-12-23] MEDS: Lactated Ringers 1,000 ML 80 ML IV (10:05)
--- NOTE | 2024-12-23 10:23 | ANES.PREOP_ITS ---
General Info Date of Service Date Performed: 12/23/24 Height: 5 ft 1 in Weight: 98.4 kg Body Mass Index (BMI): 41.0 Surgical Procedure: Operation Date: 12/23/24 11:40 Proposed Procedure Side Surgeon p Knee Total Arthroplasty w/OrthAlign, Cementless CR Left Dennis Burton MD Meds Allergies and Home Medications Allergies Allergy/AdvReac Type Severity Reaction Status Date / Time azithromycin Allergy Mild Skin Rash Verified 12/23/24 09:21 sulfamethoxazole (From Allergy Mild Skin Rash Verified 12/23/24 09:21 Bactrim) trimethoprim (From Bactrim) Allergy Mild Skin Rash Verified 12/23/24 09:21 Home Medication ?Medication ?Instructions ?Recorded turmeric 100 mg-earl 150 1 cap PO DAILY 03/07/22 mg-olive 50 mg-oreg 150 mg-capryl capsule cardamon PO 03/12/22 levothyroxine 75 mcg capsule 75 mcg PO DAILY 03/18/24 valsartan 80 mg tablet 160 mg PO DAILY 10/05/24 acetaminophen 500 mg tablet 1,000 mg (2 x 500 mg) PO TID #90 12/23/24 tabs aspirin 81 mg tablet,delayed 81 mg PO BID #60 tabs 12/23/24 release celecoxib 200 mg capsule 200 mg PO BID #60 caps 12/23/24 dexamethasone 4 mg tablet 4 mg PO DAILY #2 tabs 12/23/24 gabapentin 300 mg capsule 300 mg PO QHS #14 caps 12/23/24 oxycodone 5 mg tablet 5 mg PO Q4H PRN #18 tabs 12/23/24 pantoprazole 40 mg tablet,delayed 40 mg PO DAILY #14 tabs 12/23/24 release Current Visit Medications: Current Medications Generic Name Dose Route Start Last Admin Trade Name Freq PRN Reason Stop Dose Admin Acetaminophen 1,000 mg 12/23/24 06:00 12/23/24 09:51 Acetaminophen 500 Mg Tab PO 12/23/24 23:59 1,000 mg PREOP JOSE Administration Acetaminophen 1,000 mg 12/23/24 07:26 Acetaminophen 500 Mg Tab PO 01/22/25 08:29 TID PRN Analgesia Celecoxib 400 mg 12/23/24 06:00 12/23/24 09:51 Celecoxib 200 Mg Cap PO 12/23/24 23:59 400 mg PREOP JOSE Administration Docusate Sodium 100 mg 12/23/24 07:26 Docusate Sodium 100 Mg Cap PO 01/22/25 07:25 BID PRN PRN Constipation Gabapentin 300 mg 12/23/24 06:00 12/23/24 09:51 Gabapentin 300 Mg Cap PO 12/23/24 23:59 300 mg PREOP JOSE Administration Ringer's Solution 1,000 mls @ 80 mls/hr 12/23/24 06:00 12/23/24 10:05 IV 12/23/24 23:59 80 mls/hr INFUSION JOSE Administration Cefazolin Sodium/Dextrose 2 gm in 50 mls @ 100 mls/hr 12/23/24 06:00 Ancef Duplex IVPB 12/23/24 23:59 PREOP JOSE Tranexamic Acid/Sodium Chloride 1,000 mg in 100 mls @ 600 mls/hr 12/23/24 06:00 IVPB 12/23/24 23:59 PREOP JOSE IV Miscellaneous Supplies 1 each 12/23/24 06:00 Iv Access IV 12/23/24 23:59 DIRECTED JOSE Ondansetron HCl 4 mg 12/23/24 07:26 Ondansetron 4 Mg/2 Ml Vial IVP 01/22/25 07:25 Q6H PRN PRN Nausea Oxycodone HCl 0 mg 12/23/24 07:26 Oxycodone 5 Mg Tab PO 01/22/25 07:25 Q3H PRN PRN Pain Polyethylene Glycol 17 gm 12/23/24 07:26 Polyethylene Glycol 3350 17 Gm Packet PO 01/22/25 07:25 BID PRN PRN Constipation Sodium Chloride 0 ml 12/23/24 06:00 Normal Saline Flush 10 Ml Syr IV 12/23/24 23:59 PRN PRN Sodium Chloride 0 ml 12/23/24 06:00 Normal Saline 10 Ml Vial IJ 12/23/24 23:59 DIRECTED PRN Sterile Water 0 ml 12/23/24 06:00 Water,Injection,Sterile 10 Ml Vial IJ 12/23/24 23:59 DIRECTED PRN Tranexamic Acid 1,300 mg 12/23/24 07:32 Tranexamic Acid 650 Mg Tab PO 12/23/24 23:59 DIRECTED JOSE PFSH Active Problems Active Problems: Problem Status Onset Code Difficult intravenous access Acute Z78.9 Vertigo Acute R42 History of total left knee replacement Acute 12/23/24 Z96.652 Bilateral primary osteoarthritis of knee Chronic 04/15/17 M17.0 Epistaxis Acute R04.0 Impacted cerumen of both ears Acute H61.23 Diverticulosis Acute K57.90 Diverticulitis of sigmoid colon Acute K57.32 Hypothyroid Chronic E03.9 Obesity Chronic E66.9 Hyperlipidemia Resolved E78.5 Impaired fasting glucose Acute R73.01 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 [place] hemangioma Acute Q82.5 Neoplasm of unspecified behavior of bone, soft tissue, and skin Acute D49.2 Medical History Medical History Umbilical hernia Hiatal hernia Breast cancer underwent left lumpectomy in 2022 hormone therapy for a [place] [facility] [place] rhinitis Osteoarthritis of knees, bilateral Prediabetes White coat syndrome with diagnosis of hypertension Primary invasive malignant neoplasm of left female breast Epistaxis, recurrent Changes in vision Arthralgia Fibrocystic breast changes Fibroid uterus Bilateral primary osteoarthritis of knee Adenomatous colon polyp Medical History Comments:: Patient reports experiencing some vertigo when laying head back in bed; typically sleeps with 2 pillows to avoid. Surgical History Surgical History History of lumpectomy of left breast with lymph node excision History of bunionectomy History of breast biopsy Bilateral history of multiple History of arthroscopy Left knee 2016 History of colonoscopy Tobacco Smoking/Tobacco Use Status: Never Passive smoking exposure: No Alcohol Alcohol Intake: current Alcohol intake frequency: holidays/special occasions only Substance Use Substance use: Never Substance use type: does not use Vital Signs and Lab Results Vital Signs Most Recent Vital Signs in EMR: Most Recent Vital Signs Temp Pulse Resp BP Pulse Ox 36.3 C L 84 16 174/85 H 96 12/23/24 09:10 12/23/24 09:10 12/23/24 09:10 12/23/24 09:10 12/23/24 09:10 Lab Results Blood Type / Crossmatch: No Data to Display Complete Blood Count: White Blood Count 8.51 10^3/uL (4.4-10.8) 11/30/24 13:43 Red Blood Count 5.22 10^6/uL (3.93-5.22) 11/30/24 13:43 Hemoglobin 15.5 g/dL (11.2-15.7) 11/30/24 13:43 Hematocrit 47.5 % (36.0-46.0) H 11/30/24 13:43 Platelet Count 249 10^3/uL (130-400) 11/30/24 13:43 Complete Metabolic Panel: Sodium 141 mmol/L (136-145) 11/30/24 13:43 Potassium 3.9 mmol/L (3.5-5.1) 11/30/24 13:43 Chloride 104 mmol/L (98-107) 11/30/24 13:43 Carbon Dioxide 28.9 mmol/L (21.0-32.0) 11/30/24 13:43 BUN 11 mg/dL (7-18) 11/30/24 13:43 Creatinine 0.9 mg/dL (0.55-1.02) 11/30/24 13:43 Est GFR (CKD-EPI 2020) 66.67 (mL/min/1.73m2) 11/30/24 13:43 Calcium 9.5 mg/dL (8.5-10.1) 11/30/24 13:43 Glucose 143 mg/dL (74-106) H 11/30/24 13:43 Hemoglobin A1c 6.1 % (<5.7) H 12/11/24 09:20 Liver Function Panel: No Data to Display Coagulation Panel: No Data to Display Cardiac Panel: No Data to Display Arterial Blood Gas: No Data to Display Venous Blood Gas: No Data to Display Pancreas Panel: No Data to Display Thyroid Panel: No Data to Display Infectious Disease: No Data to Display Blood Cultures: No Data to Display Toxicology Panel: No Data to Display Imaging and Studies Imaging and Studies Study information below may be from another EMR and interpreted by another provider. Please see original notes in EMR for more complete details. Carotid Artery Summary:: Exam(s): [id number] US:Carotid SYMPTOMS/DIAGNOSIS: TRANSIENT ISCHEMIC ATTACK, 435.9 BILATERAL DUPLEX CAROTID ULTRASOUND: Duplex evaluation of the carotid circulation was performed according to the usual protocol. There is no visible atheromatous plaque. Flow velocities in the common internal and external carotid arteries are within normal limits. There is bilateral antegrade vertebral flow. CONCLUSION: No evidence of a hemodynamically significant carotid stenosis. CC: NEERAJ CHAKRABORTY Dictated By: DANNY VANEGAS MD 155 <Electronically signed by DANNY VANEGAS MD> 08/03/13 4220 Anesthesia Assessment and Plan Anesthesia History Personal History: No History of Anesthesia Complications Family History: No Family History of Anesthesia Complications Exercise Tolerance Exercise Tolerance: Metabolic Equivalents<4 Pertinent Negatives Pertinent Negatives: No Symptoms of GERD, No Major Cardiovascular Symptoms or Complaints and No Major Pulmonary Symptoms or Complaints Cardiac & Pulmonary Exam Cardiac Exam: Normal S1/S2 Heart Sounds Pulmonary Exam: Clear Bilateral Breath Sounds Implantable Cardiac Device Does patient have a Pacemaker or an ICD?: No Airway Exam Known Difficult Airway: No Mallampati Class: 2 Mouth Opening: Normal (> 3cm) Thyromental Distance: Less than 3 cm Neck Range of Motion: Full ROM Neck Circumference: Normal Teeth Condition: Normal Dentition ASA Classification ASA Score: ASA 2 Emergency Case?: No NPO Status NPO Status: NPO Clears >2 hours, Solids >8 hours Anesthesia Plan Resuscitation Status: Full Code Anesthesia Technique: Spinal Anesthesia Airway Planned: Natural Airway Pain Management: Surgeon and patient request nerve block Monitors Used: Standard Monitors
[2024-12-23] MEDS: ceFAZolin 2 GM/50 ML BAG IVPB (13:03)
--- NOTE | 2024-12-23 13:13 | ROE_ITS ---
Operative Note Operative Note PRE-OP DIAGNOSIS: Left Knee Osteoarthritis POST-OP DIAGNOSIS: same PROCEDURE: Left Total Knee Replacement with Intraoperative Navigation SURGEON: Dennis Burton BPO SPECIALIST: Ruma Lott ANESTHESIA TYPE: Spinal Refer to Anesthesia Record ESTIMATED BLOOD LOSS: 100 PATHOLOGY: none sent TOURNIQUET TIME: 0 COMPLICATIONS: None Patient was transported to: PACU Patient's condition: stable Implants: 1. Depuy Attune Cementless Cruciate Retaining Femoral Component, Size 5 narrow 2. Depuy Attune Cementless Fixed Bearing Tibial Component, Size 3 3. Depuy Attune 5x8mm CR/FB Poly Indications: I have seen Paula in clinic for symptoms of LEFT knee arthritis, confirmed with radiographic findings. She has exhausted nonoperative methods and was having significant limitations in daily function and desired better function and less pain. I discussed the technical details of a knee replacement. I explained the risks of the procedure to include, but not limited to, bleeding, infection, pain, stiffness, fracture, damage to nerves and vessels, damage to muscles and tendons, loosening, need for repeat procedure, blood clot and cardiopulmonary demise. Despite these risks, Paula elected to proceed. Findings: There was significant signs of arthritis throughout the knee with notable defect of the posterior medial tibia and large osteophytes throughout. Procedure Description: Paula was greeted in the preoperative holding area where the correct side was identified and marked. The consent was reviewed with the patient and signed. The history and physical was updated. All questions were answered. Preoperative mediacations were administered: Acetaminophen 1000mg, Celebrex 400mg, and Gabapentin 300mg. An adductor canal block was then administered by the anesthesia team in the DSU. She was taken back to the operating room. A spinal anesthestic was then administered. The patient was placed into the supine position on the operating room table. Posts were placed for positioning during the procedure. All bony prominences were well padded. Prophylactic antibiotics in the form of Cefazolin were administered. 1g of Tranxemic Acid was given intravenously within 30 minutes of incision. The left leg was then prepped with Chloraprep and draped in a standard fashion with impervious stockinette. A second prep with Chloraprep was performed prior to application of Iodine impregnated skin protection. A timeout to confirm correct identity, side and site, procedure, allergies, anesthesia, and medical concerns was performed. With the knee in some flexion, a midline incision was made overlying the knee. Full thickness skin flaps were raised once the extensor mechanism was encountered. These were raised medially and laterally. Any bleeding was controlled with electrocautery. Once the extensor mechanism was fully exposed, a medial parapatellar arthrotomy was performed in a flexed position. All bleeding from the arthrotomy and the geniculate arteries was coagulated. A medial subperiosteal peel was performed with electrocautery to the midcoronal plane. The fat pad was removed while keeping the patellar tendon protected. The anterior distal femur synovium was removed for later visualization. The ACL and PCL were resected and the anterior horn of the lateral meniscus was transected. The knee was then flexed with the patella everted. Large osteophytes from the tibia were removed. Large osteophytes from the femur were removed. Visualization was challenging given the amount of adiposity surrounding the knee, particularly over the patellar tendon and the tibial tubercle region, proximal tibia A single starting pin was then placed 1cm anterior to the PCL insertion and the notch in the direction of the femoral head. The OrthoAlign device was applied over the pin. It was oriented to be in line with the epicondylar axis and the trochlear groove. It was then pinned into place. The navigation computer was then turned on and calibrated. The distal femur cut was set at 0.5 degrees varus and 3.5 degrees flexion. The distal femur cutting guide then was positioned for a 9mm cut. The distal femur was cut with an oscillating saw while protecting the soft tissues. The tibia was then addressed. The OrthoAlign device was placed over the tibial tubercle and medial tibia and secured into position. Once again, OrthoAlign was calibrated and then set for a 1.5 degree varus cut and 5.5 degrees of posterior slope. With this locked into position, the cut thickness stylus was used to assess cut thickness. The medial side, most involved side, was set for a 4mm cut. This was then held in position and pinned into place with 2 additional pins and a cross pin for stability. The medial and lateral collateral ligaments were protected and the cut was performed. With this completed, it was assessed and noted to be of appropriate dimensions. The guide and OrthoAlign was removed. A spacer block was inserted and the knee was brought into extension to ensure enough space was present. . The Orthoalign gap balancing device was then placed in extension. This was used to ensure that the ligaments were properly balanced with up to 2 to 3 mm laxity laterally compared medially. The extension gap was measured as 19mm. The knee was then brought into 90 degrees of flexion and the ligament air conditioning coil assembler was once again placed. Under the same amount of force the flexion gap was measured. The Attune specific jig was placed and the flexion gap was made to match the extension gap. The femur was then sized as a size 5 narrow. The 4-in-1 cutting guide was the placed. An gareth wing was used to confirm appropriate position of the anterior cut to avoid notching. This cutting guide was ensured to be flush on the cut surface and then pinned into place with headed pins. While protecting the soft tissues, quad tendon, and collateral ligaments, the anterior and posterior cuts were performed with a saw. The central two pins were removed and the posterior and anterior chamfers were cut next. The notch-cutting guide was placed. This was pinned to lateralize the femoral component as much as possible while keeping it flush on the cut surface. This was then pinned into position. A saw was used to make the notch cut. A rasp smoothed the cut surfaces. The medial and lateral menisci were removed. A trial femoral component was then inserted, impacted down to the cut surfaces, and the lug holes were drilled. A provisional trial tibial component was placed and the knee was brought through range of motion. The polyethylene was trialed until there was good flexion and extension with excellent stability to the medial and lateral collaterals. The patella was tracking without thumbs. A size 8mm polyethylene component provided the best range of motion and stability with less than 2mm gapping with medial and lateral stress and full extension without significant hyperextension. The tibial cut surface was fully exposed. The tibia was then sized as a 3. The tibia had been previously marked during trialing to correspond to the center of the tibial component to help with rotation. The trial was aligned to this ruma, approximately rotated to the medial 1/3rd of the tibial tubercle. The trial was pinned into place. The tibia was prepared with a reamer and a keel punch and lug holes. The trial components were removed. The final components were opened on the back table. The periosteal and capsular tissues, especially posteriorly, around the knee were then systematically injected with a periarticular cocktail consisting of 246mg of Ropivacaine, 0.5mg of Epinephrine, 0.08mg of Clonidine, and 30mg of Ketorolac, diluted to 100cc. Then, the knee components were placed. Starting with the tibial component, the tibia was subluxed anteriorly and the lug holes of the component were lined up. The tibia was then impacted with an impactor and mallet until the tibial component was in contact with the tibia. Then, the femoral component was inserted. The lug holes were aligned and the component was impacted into position. The final polyethylene component was inserted. The knee was irrigated with Surgiphor Betadine solution. This was allowed to sit in the knee for 3 minutes and then it was thoroughly irrigated out with saline. The knee was then taken through range of motion. The patella was tracking with a no-thumbs technique. A complete synovectomy of the patella was performed. Any prominence to the lateral facet was resected with a rongeur. The capsule was then reapproximated with a No. 1 Vicryl at multiple locations. The capsule was finally closed with a No. 2 Stratafix, barbed suture. Deep tissues were then reapproximated with 0 Vicryl and 2-0 Vicryl. The skin was closed with a running 3-0 Monocryl in a subcuticular fashion. This was reinforced with skin glue. A Mepilex silver dressing was applied along with a [id number] DON wrap. A CryoCuff was applied. Paula was transferred to the hospital bed without difficulty an suffering no apparent complication. She has a good prognosis. Physical therapy will start today and without restrictions, weight-bearing as tolerated. Aspirin 81mg BID will be used for DVT prophylaxis. Date of Procedure: 12/23/24
[2024-12-23] MEDS: TRANEXAMIC ACID/SOD. CHL. 1,000 MG/100 ML BAG 600 MG IVPB (13:15)
--- NOTE | 2024-12-23 14:35 | W.ANESNERVE ---
Nerve Block Single Injection Procedure Date and Time Date Performed: 12/23/24 Procedure Start: 11:35 Location Where Procedure Performed Procedure Location: Day Surgery Unit Reason Performed: Postoperative Analgesia Requesting Provider: Dennis Burton Timeout Performed Timeout Performed: Yes Monitoring Used ECG, Blood Pressure, SpO2 and See EMR for corresponding vital signs Sterility Sterility: Hand Hygiene, Surgical Cap, Surgical Mask, Sterile Gloves and Chlorhexidine Sedation Given During Procedure Sedation Given (Indicate Dose Given): No Sedation given Patient Mental Status Patient Mental Status: Awake Nerve Block 1st Nerve Block: Laterality: Left Block Type: Adductor Canal Ultrasound Image Saved?: Yes Needle / Catheter Used: 80mm SonoPlex II Local Anesthetic Bolus (Indicate Dose Given): Lidocaine used for local infiltration of skin, Injected in 3-5ml increments after negative blood aspiration, Bupivacaine 0.25% Dose:: 10mL and Exparel Dose:: 10mL Additives (Indicate Dose Given): None Ultrasound: Sterile probe cover and gel used Nerve Stimulator: Supplement to Ultrasound use and No twitch or parasthesia noted < 0.5 mA Paresthesia: None Procedure Tolerated: No Complications Procedure Outcome: Successful Performed By: Chaparrita Meeks
--- NOTE | 2024-12-23 15:33 | W.ANESPOSTOP ---
Postoperative Evaluation Date, Time and Location Date Performed: 12/23/24 Time Performed: 15:33 Patient Location: PACU Vital Signs Most Recent Imported Vital Signs: Most Recent Vital Signs Temp Pulse Resp BP Pulse Ox 36.5 C 90 19 171/86 H 93 12/23/24 15:31 12/23/24 15:31 12/23/24 15:31 12/23/24 15:31 12/23/24 15:31 Pain Score Most Recent Pain Score: Most Recent Pain Score Pain Level 2 12/23/24 15:20 Assessment Mental Status: Awake (Alert & Oriented to Patient Baseline) Airway and Respiratory Function: Patent airway with normal (patient baseline) respiratory exam Cardiovascular Function: Hemodynamically Stable Hydration Status: Adequately Hydrated Nausea & Vomiting: No Nausea or Vomiting Pain: Pain is tolerable per patient Peripheral Nerve Block: Regional nerve block not resolved at time of post operative discharge
[2024-12-23] MEDS: oxyCODONE 5 MG TAB PO (16:13)
--- NOTE | 2024-12-23 17:12 | PT.INIE ---
PT Notes Visit Reasons: L TKR Physical Therapy Day Surgery Initial Evaluation Date: 12/24/2024 Referring Doctor: JOSE Rodriguez PT Orders: PT CONSULT: S/P Ortho Surgery Precautions: WBAT through the L LE with AD. Patient Profile/Admitting Diagnosis: Paula is a 74-year-old female with degenerative joint disease of the L knee and is S/P total knee arthroplasty on postoperative day 0. PMHX: Medical History (Updated 11/30/24 @ 13:00 by Rosette Falcon) Breast cancer underwent left lumpectomy in 2022 hormone therapy for a year following [facility] Seasonal allergic rhinitis Osteoarthritis of knees, bilateral Prediabetes White coat syndrome with diagnosis of hypertension Primary invasive malignant neoplasm of left female breast Epistaxis, recurrent Changes in vision Arthralgia Fibrocystic breast changes Fibroid uterus Bilateral primary osteoarthritis of knee Adenomatous colon polyp Surgical History (Updated 11/30/24 @ 13:04 by Rosette Falcon) History of lumpectomy of left breast with lymph node excision History of bunionectomy History of breast biopsy Bilateral history of multiple History of arthroscopy Left knee 2016 History of colonoscopy Social History/Home Situation: Lives with august in a priavte home with 2 steps to enter. Independent with all aspects of ADLs prior to surgery but has had increasing difficulty with mobility performance due to worsening arthritis. Equipment Owned/DME: None Subjective: Feels like she is a little spacey and has some difficulty concentrating with instructions. Minimal pain in the L knee. Objective: General Observation: DON wraps to L LE. Cryocuff to L knee. TEDS to R leg/foot. Mental Status: A and O x 4 Pain: 2/10 in the L knee ROM: Right Lower Extremity: Hip flexion WFL. Hip abduction WFL. Knee flexion WFL. Ankle dorsiflexion WFL. Ankle plantarflexion WFL. Left Lower Extremity: Hip flexion WFL. Hip abduction WFL. Knee flexion 10 degrees to 90 degrees. Knee extension -10 degrees. Ankle dorsiflexion WFL. Ankle plantarflexion WFL. Strength: Right Lower Extremity: Hip flexors 5/5. Hip abductors 5/5. Knee flexors 5/5. Knee extensors 5/5. Ankle dorsiflexors 5/5. Ankle plantarflexors 5/5. Left Lower Extremity:Hip flexors 5/5. Hip abductors 5/5. Knee flexors 1+/5. Knee extensors 1+/5. Ankle dorsiflexors 5/5. Ankle plantarflexors 5/5. Sensation: Intact tested pain and light pressure in bilateral lower extremities Bed Mobility/Transfers: Miinimal cueing provided for use of B hands as needed for support, movement sequence, AD management, and posture to reduce fall risk and minimize pain report Sit to stand stand by assist with FWW Stand to sit stand by assist with FWW Bed to chair stand by assist with FWW Gait: Facilitate safe and correct performance of level surface ambulation covering a distance of 75 feet +75 feet using front wheeled walker with step to gait pattern requiring standby assist and minimal verbal cueing for limb movement sequence, AD management, weight distribution, and posture to minimize pain report and increase stability of gait. No buckling see, no LOB throughout. Stairs: Guided patient with safe and correct negotiation of 3 x 4 inch steps and 2 x 6 inch steps while holding onto bilateral rails with step to gait pattern requiring minimal verbal cueing for limb movement sequence, increased flexion on the left knee during each ascent, hand placement, and posture to minimize pain report and reduce fall risk. No LOB Balance: Static Sitting: Normal Dynamic Sitting: Normal Static Standing: Fair Dynamic Standing: Fair Special Tests: Mobility Limitations Standardized Measure [facility] AM-PAC 6 clicks Basic Mobility Inpatient Short Form: Raw Score: 22 CMS Score: 21% deficit Informed Consent/Education: Patient instructed in purpose of PT consult. Packet containing TKA exercise protocol has been given to patient. Education and training on initial set of exercises that can be done at home have been completed with patient. Trained patient with correct performance of exercises below to maximize motor control, joint flexibility, soft tissue extensibility of the L knee musculature: Access Code: [email or web address] URL: [email or web address] Date: 05/23/2025 Prepared by: Olamide Lee Exercises - Supine Quad Set - 1 x daily - 7 x weekly - 1 sets - 10 reps - 5 hold - Supine Heel Slide - 1 x daily - 7 x weekly - 1 sets - 10 reps - 5 hold - Supine Ankle Pumps - 1 x daily - 7 x weekly - 1 sets - 10 reps - 5 hold - Small Range Straight Leg Raise - 1 x daily - 7 x weekly - 1 sets - 10 reps - 5 hold ABLE TO ISOMETRICALLY CONTRACT QUADS BUT UNABLE TO LIFT L LE UP AT THIS TIME - Seated November - 1 x daily - 7 x weekly - 1 sets - 10 reps - 5 hold Assessment: Patient requires the use of a front wheeled walker for mobility ADL performance to maximize independence and reduce fall risk. Patient presents with clinical signs and symptoms consistent with current/admitting diagnoses that have resulted to mobility limitations, gait instability, generalized weakness, and impairment of motor control as demonstrated by the following impairment level findings: 1. Decreased strength to left knee major muscle groups 2. Impaired standing balance 3. Limitation of joint range of motion in left knee Impairments are contributing to the following functional limitations: 1. Inability to safely ambulate without assistive device 2. Increase completion time for mobility ADL performance 3. Increased fall risk Patient is assessed as a 19602 moderate complexity based on the following: History: 74-year-old female with impairment level findings, functional limitations, and past medical history as indicated above Examination: Demonstrable impairment in strength, balance, and mobility level with underlying impairments and functional limitations as documented above Presentation: Evolving Decision Makin moderate complexity Goals: N/A. PT evaluation and 1-2 treatment sessions only for functional mobility training using recommended AD and for HEP instruction. Plan of Care/Treatment Plan: N/A. PT evaluation and 1-2 treatment session only for functional mobility training using recommended AD and for HEP instruction. DISCHARGE RECOMMENDATIONS: Home when medically cleared by orthopedic surgeon. Recommend outpatient PT services in order to optimize functional mobility outcomes and facilitate return to independent community ambulation without an assistive device. TREATMENT CODE/TIME: 35805 x 20 minutes for 1 unit, 77334 x 21 minutes for 1 unit (17:12?17:53). Thank you for the opportunity to participate in the care of this patient. Olamide Lee PT, DPT, CLT [facility] [place], [place]
== END 2024-12-23 18:20 | disposition home or self-care (01) ==
LOC: SUR 08:48
PROVIDERS: PCP Family Medicine; Visit Provider Student in an Organized Health Care Education/Training Program
PROC: (CPT 27447; principal; 2024-12-23 11:30)
DX: M17.12 Unilateral primary osteoarthritis, left knee (principal); G89.18 Other acute postprocedural pain; M25.562 Pain in left knee; E66.9 Obesity, unspecified; Z68.41 Body mass index [BMI] 40.0-44.9, adult; E78.5 Hyperlipidemia, unspecified; E03.9 Hypothyroidism, unspecified
CPT/HCPCS: 20985; 27447; 64447; 97162; 97530; C1776; J0665; J0666; J0690; J1100; J2003; J2250; J2371; J2401; J2405; J2704

== ENCOUNTER 2025-01-07 14:08 | Outpatient (CLI) | payer MEDICARE, SELFPAY ==
--- NOTE | 2025-01-07 09:45 | DI.RAD_ITS ---
Exam(s) XR KNEE LT 1V XR STANDING ALIGNMENT EXAM: XR STANDING ALIGNMENT and XR knee LT 1 V CLINICAL HISTORY: 1ST POST OP S/P L TKA. TECHNIQUE: 2D digital imaging was performed. Five images were obtained. COMPARISON: CR XR HIP LT COMPLETE AP PELVIS from 06/01/2024 CR XR KNEE LT 4V+ from 06/01/2024 CR XR KNEE RT 4V AP,LAT,FLOYD,PAT from 06/01/2024 CR XR STANDING ALIGNMENT from 10/05/2024 FINDINGS: BONES: The hips are well maintained. Since the prior examination, the patient has undergone a left t otal knee arthroplasty. The orthopedic hardware is in good position. No evidence of loosening. The re is a small joint effusion. In the right knee, there is marked narrowing of the medial femoral tib ial joint. Osteophytes are seen both medially and laterally. Soft tissue calcifications are again s een anterior to the proximal tibia. The ankles are well maintained.There is no significant leg lengt h discrepancy. SOFT TISSUE: Normal. IMPRESSION: 1. Unremarkable left total knee arthroplasty. 2. Marked degenerative changes in the right knee. DATA REPOSITORY: RADIATION DOSE DELIVERED:
== END 2025-01-07 14:09 | disposition home or self-care (01) ==
LOC: DIORS 14:08
PROVIDERS: PCP Family Medicine; Referring Provider Family Medicine; Visit Provider Physician Assistant
DX: Z96.652 Presence of left artificial knee joint (principal); Z47.1 Aftercare following joint replacement surgery
CPT/HCPCS: 99024; 73560; 77073

== ENCOUNTER → 2025-02-04 09:56 | Outpatient (BNVA) | payer MEDICARE, SELFPAY | PROVIDERS: PCP Family Medicine; Referring Provider Family Medicine; Visit Provider Student in an Organized Health Care Education/Training Program | DX: Z96.652 Presence of left artificial knee joint (principal); Z47.1 Aftercare following joint replacement surgery | CPT/HCPCS: 99024 ==

== ENCOUNTER → 2025-02-19 10:35 | Outpatient (BNVA) | payer MEDICARE, SELFPAY | PROVIDERS: PCP Family Medicine; Referring Provider Family Medicine; Visit Provider Physician Assistant | DX: Z96.652 Presence of left artificial knee joint (principal); M17.0 Bilateral primary osteoarthritis of knee | CPT/HCPCS: 20610; J1010 ==

== ENCOUNTER 2025-02-22 02:01 | Outpatient (CLI) | payer MEDICARE, SELFPAY ==
--- NOTE | 2025-02-22 | DI.MAMMO_ITS ---
Exam(s) MG MAMMO SCREENING 60 MIN DUR EXAM: MG MAMMO SCREENING 60 MIN DUR CLINICAL HISTORY: Screening, Z12.39; prior h/o left-sided breast cancer. TECHNIQUE: Bilateral full field digital CC and MLO mammographic images were obtained with 3D tomosyn thesis and utilizing computer aided detection (CAD). COMPARISON: Prior outside mammograms were reviewed. This patient has had prior left breast lumpectomy and she has 2 sisters with breast cancer. FINDINGS: There has been no significant change in the appearance and distribution of the fibroglandular tissue. The lumpectomy site in the left breast is stable with no new significant findings. Right breast skin mole again noted. There are no new spiculated masses nor new malignant appearing microcalcification groups. There is no significant architectural distortion nor skin thickening-retraction. IMPRESSION: No radiographic evidence of malignancy. BI-RADS Category 1 - Negative Breast Density - Category B - There are scattered areas of fibroglandular density. Breast density Category C or D implies that the patient has dense breast tissue. Dense breast tissue can make it harder to find cancer on a mammogram. Dense breast tissue is also associated with an incr eased risk of breast cancer. This information about the result of the mammogram report was provided to the patient to raise their awareness. Use this report when you speak with the patient about their risks for breast cancer, which includes their family history. At that time, you may recommend additional screening tests (Ultrasoun d or MRI) as these tests may add significant information. A negative radiographic report should not delay biopsy if a dominant or clinically suspicious mass is present. Up to ten percent of cancers are not identified on mammography. A negative report may reinforce clinical impression. Adenosis and dense breasts may obscure an underlying neoplasm. False positive reports average 6 to 10%. Patient will receive a letter notifying them of these results.
== END 2025-02-22 02:21 ==
LOC: DI 02:02
PROVIDERS: PCP Family Medicine; Visit Provider Family Medicine
DX: Z12.31 Encounter for screening mammogram for malignant neoplasm of breast (principal)
CPT/HCPCS: 77063; 77067

== ENCOUNTER → 2025-03-18 08:41 | Outpatient (BNVA) | payer MEDICARE, SELFPAY | PROVIDERS: PCP Family Medicine; Referring Provider Family Medicine; Visit Provider Physician Assistant | DX: Z47.1 Aftercare following joint replacement surgery (principal); Z96.652 Presence of left artificial knee joint | CPT/HCPCS: 99024 ==

== ENCOUNTER 2025-08-04 15:48 | Outpatient (REF) | payer MEDICARE, SELFPAY ==
[2025-08-04 17:05] LABS: Anion Gap 7.9 mmol/L (3-11); BUN 12 mg/dL (9-23); CO2 30.1 mmol/L (20.0-31.0); Calcium 9.3 mg/dL (8.3-10.6); Chloride 104 mmol/L (98-107); Glucose 95 mg/dL (74-106); Potassium 4.3 mmol/L (3.5-5.1); Sodium 142 mmol/L (136-145)
[2025-08-04 17:07] LABS: TSH (W/Ref FT4) 1.61 uIU/mL (0.55-4.78)
[2025-08-04 17:22] LABS: Hemoglobin A1C 6.0 % (<5.7)
== END 2025-08-04 15:49 | disposition home or self-care (01) ==
LOC: NCHCN 15:48
PROVIDERS: PCP Family Medicine; Visit Provider Family Medicine
DX: E03.9 Hypothyroidism, unspecified (principal); I10 Essential (primary) hypertension; R73.03 Prediabetes
CPT/HCPCS: 80048; 83036; 84443

== ENCOUNTER → 2025-08-10 09:21 | Outpatient (BNVA) | payer MEDICARE, SELFPAY | PROVIDERS: PCP Family Medicine; Referring Provider Family Medicine; Visit Provider Student in an Organized Health Care Education/Training Program | DX: D12.6 Benign neoplasm of colon, unspecified (principal); K42.9 Umbilical hernia without obstruction or gangrene; Z80.0 Family history of malignant neoplasm of digestive organs | CPT/HCPCS: 99213 ==